=== PATIENT | male | born 1945 | race Caucasian/White ===

== ENCOUNTER → 2016-11-23 | Outpatient (CLI) | payer MEDICARE ==
[~2016-11-23] MED LIST: 1-ME1LIQ PO; ASPI81 PO; GLUCTAB OR; GLYB1TAB50 PO; LANTINJ SC; LOPI600T PO; MEDR4PAK3 PO; WARF7.5 PO
[2016-11-23 13:21] LABS: HEMATOCRIT 36.4 % (39.0-51.0); MEAN CELL VOLUME 87.1 FL (80.0-100.0); MEAN CORPUSCULAR HEMOGLOBIN 30.3 PG (27.0-34.0); MEAN CORPUSCULAR HGB CONC 34.8 % (32.0-36.0); PLATELET COUNT 317 TH/MM3 (150-450); RED BLOOD COUNT 4.18 MIL/MM3 (4.50-5.90); RED CELL DISTRIBUTION WIDTH 14.3 % (11.6-17.2); REVIEW FLAG FINAL; WHITE BLOOD COUNT 9.9 TH/MM3 (4.0-11.0)
== END ==
LOC: CLAB 12:50
PROVIDERS: ATTEND Family Medicine
DX: M25.532 Pain in left wrist (principal)
CPT/HCPCS: 36415; 84550; 85027

== ENCOUNTER → 2016-12-11 | Outpatient (CLI) | payer MEDICARE ==
[2016-12-11 11:21] LABS: INTERNATIONAL NORMALIZED RATIO 2.3 RATIO; PROTHROMBIN TIME - PATIENT 26.4 SEC (9.8-11.6)
== END ==
LOC: CLAB 10:42
PROVIDERS: ATTEND Internal Medicine Cardiovascular Disease
DX: I48.0 Paroxysmal atrial fibrillation (principal)
CPT/HCPCS: 36415; 85610

== ENCOUNTER → 2016-12-27 | Outpatient (CLI) | payer MEDICARE ==
[2016-12-27 09:59] LABS: INTERNATIONAL NORMALIZED RATIO 2.5 RATIO; PROTHROMBIN TIME - PATIENT 28.2 SEC (9.8-11.6)
[2016-12-27 10:12] LABS: HEMATOCRIT 35.1 % (39.0-51.0); MEAN CELL VOLUME 86.8 FL (80.0-100.0); MEAN CORPUSCULAR HEMOGLOBIN 30.1 PG (27.0-34.0); MEAN CORPUSCULAR HGB CONC 34.6 % (32.0-36.0); PLATELET COUNT 325 TH/MM3 (150-450); RED BLOOD COUNT 4.04 MIL/MM3 (4.50-5.90); RED CELL DISTRIBUTION WIDTH 14.1 % (11.6-17.2); REVIEW FLAG FINAL; WHITE BLOOD COUNT 6.3 TH/MM3 (4.0-11.0)
[2016-12-27 10:37] LABS: ALKALINE PHOSPHATASE 64 U/L (45-117); ALT (GPT) 22 U/L (12-78); ANION GAP 9 MEQ/L (5-15); AST (GOT) 13 U/L (15-37); BICARBONATE 23.7 MEQ/L (21.0-32.0); BLOOD UREA NITROGEN 42 MG/DL (7-18); CHLORIDE 102 MEQ/L (98-107); GLOMERULAR FILTRATION RATE 35 ML/MIN (>89); GLUCOSE,FASTING 164 MG/DL (74-99); HDL CHOLESTEROL 28.3 MG/DL (40.0-60.0); LDL CHOLESTEROL 87 MG/DL (0-99); POTASSIUM 4.2 MEQ/L (3.5-5.1); SODIUM (NA) 135 MEQ/L (136-145); TOTAL BILIRUBIN ADULT 0.5 MG/DL (0.2-1.0)
[2016-12-27 20:08] LABS: HEMOGLOBIN A1a 0.9 %; HEMOGLOBIN A1b 2.3 %; HEMOGLOBIN Ao 80.1 %; HEMOGLOBIN LA1C 2.8 %; HEMOGLOBIN P3 6.7 %
== END ==
LOC: CLAB 09:27
PROVIDERS: ATTEND Internal Medicine Endocrinology, Diabetes & Metabolism
DX: E78.4 Other hyperlipidemia (principal); R80.9 Proteinuria, unspecified; I13.10 Hypertensive heart and chronic kidney disease without heart failure, with stage 1 through stage 4 chronic kidney disease, or unspecified chronic kidney disease; N18.3 Chronic kidney disease, stage 3 (moderate); E11.22 Type 2 diabetes mellitus with diabetic chronic kidney disease; E11.21 Type 2 diabetes mellitus with diabetic nephropathy; I48.0 Paroxysmal atrial fibrillation; I25.10 Atherosclerotic heart disease of native coronary artery without angina pectoris; Z95.5 Presence of coronary angioplasty implant and graft
CPT/HCPCS: 36415; 80053; 80061; 83036; 84443; 85027; 85610

== ENCOUNTER → 2017-01-29 | Outpatient (CLI) | payer MEDICARE ==
[2017-01-29 11:15] LABS: INTERNATIONAL NORMALIZED RATIO 2.6 RATIO
== END ==
LOC: CLAB 10:37
PROVIDERS: ATTEND Internal Medicine Cardiovascular Disease
DX: I48.0 Paroxysmal atrial fibrillation (principal)
CPT/HCPCS: 36415; 85610

== ENCOUNTER → 2017-02-26 | Outpatient (CLI) | payer MEDICARE ==
[2017-02-26 10:44] LABS: BLOOD, URINE SMALL (NEG); COMMENT (UR) CULT NOT INDICATED; CULTURE IF INDICATED CULT NOT INDICATED; GLUCOSE,URINE NEG (NEG); HYALINE CAST, URINE 1 /lpf (RARE); KETONE, URINE NEG (NEG); MUCUS URINE FEW /lpf (OCC); NITRITE,URINE NEG (NEG); PH, URINE 5.5 (5.0-8.5); URINE COLOR LIGHT-YELLOW (YELLW/STRAW)
[2017-02-26 10:47] LABS: INTERNATIONAL NORMALIZED RATIO 3.1 RATIO; PROTHROMBIN TIME - PATIENT 35.5 SEC (9.8-11.6)
[2017-02-26 10:53] LABS: HEMATOCRIT 37.1 % (39.0-51.0); MEAN CELL VOLUME 87.2 FL (80.0-100.0); MEAN CORPUSCULAR HEMOGLOBIN 29.2 PG (27.0-34.0); MEAN CORPUSCULAR HGB CONC 33.5 % (32.0-36.0); PLATELET COUNT 326 TH/MM3 (150-450); RED BLOOD COUNT 4.25 MIL/MM3 (4.50-5.90); RED CELL DISTRIBUTION WIDTH 14.6 % (11.6-17.2); REVIEW FLAG FINAL; WHITE BLOOD COUNT 5.6 TH/MM3 (4.0-11.0)
[2017-02-26 11:01] LABS: BICARBONATE 26.8 MEQ/L (21.0-32.0); POTASSIUM 4.4 MEQ/L (3.5-5.1)
== END ==
LOC: CLAB 10:04
PROVIDERS: ATTEND Internal Medicine Cardiovascular Disease
DX: N18.3 Chronic kidney disease, stage 3 (moderate) (principal); E55.9 Vitamin D deficiency, unspecified; I48.0 Paroxysmal atrial fibrillation
CPT/HCPCS: 36415; 80069; 81001; 82306; 82570; 83970; 84156; 85027; 85610

== ENCOUNTER → 2017-03-26 | Outpatient (CLI) | payer MEDICARE ==
[2017-03-26 08:32] LABS: INTERNATIONAL NORMALIZED RATIO 2.5 RATIO; PROTHROMBIN TIME - PATIENT 28.3 SEC (9.8-11.6)
== END ==
LOC: CLAB 07:42
PROVIDERS: ATTEND Internal Medicine Cardiovascular Disease
DX: I48.0 Paroxysmal atrial fibrillation (principal)
CPT/HCPCS: 36415; 85610

== ENCOUNTER → 2017-03-30 | Outpatient (CLI) | payer MEDICARE ==
[2017-03-30 12:37] LABS: AUTOMATED NEUTROPHIL # 3.6 TH/MM3 (1.8-7.7); BASOPHIL # 0.1 TH/MM3 (0-0.2); BASOPHIL % 0.9 % (0.0-2.0); EOSINOPHIL # 0.2 TH/MM3 (0-0.4); HEMATOCRIT 37.3 % (39.0-51.0); HEMO FLAGS DIFF FINAL; LYMPH % 26.6 % (9.0-44.0); LYMPHOCYTE # 1.6 TH/MM3 (1.0-4.8); MEAN CELL VOLUME 87.7 FL (80.0-100.0); MEAN CORPUSCULAR HEMOGLOBIN 29.5 PG (27.0-34.0); MEAN CORPUSCULAR HGB CONC 33.6 % (32.0-36.0); MONO % 10.7 % (0.0-8.0); NEUT % 58.8 % (16.0-70.0); PLATELET COUNT 286 TH/MM3 (150-450); RED BLOOD COUNT 4.26 MIL/MM3 (4.50-5.90); RED CELL DISTRIBUTION WIDTH 15.2 % (11.6-17.2); WHITE BLOOD COUNT 6.1 TH/MM3 (4.0-11.0)
== END ==
LOC: CLAB 12:22
PROVIDERS: ATTEND Family Medicine
DX: R21 Rash and other nonspecific skin eruption (principal)
CPT/HCPCS: 36415; 85025

== ENCOUNTER → 2017-04-27 | Outpatient (CLI) | payer MEDICARE ==
[2017-04-27 10:16] LABS: HEMATOCRIT 36.9 % (39.0-51.0); MEAN CELL VOLUME 87.1 FL (80.0-100.0); MEAN CORPUSCULAR HEMOGLOBIN 30.2 PG (27.0-34.0); MEAN CORPUSCULAR HGB CONC 34.7 % (32.0-36.0); PLATELET COUNT 275 TH/MM3 (150-450); RED BLOOD COUNT 4.24 MIL/MM3 (4.50-5.90); RED CELL DISTRIBUTION WIDTH 15.4 % (11.6-17.2); REVIEW FLAG FINAL
[2017-04-27 10:23] LABS: INTERNATIONAL NORMALIZED RATIO 2.5 RATIO; PROTHROMBIN TIME - PATIENT 28.2 SEC (9.8-11.6)
[2017-04-27 10:38] LABS: ANION GAP 7 MEQ/L (5-15); BICARBONATE 26.8 MEQ/L (21.0-32.0); BLOOD UREA NITROGEN 39 MG/DL (7-18); CHLORIDE 103 MEQ/L (98-107); GLOMERULAR FILTRATION RATE 35 ML/MIN (>89); GLUCOSE,FASTING 141 MG/DL (74-99); POTASSIUM 4.3 MEQ/L (3.5-5.1); SODIUM (NA) 137 MEQ/L (136-145)
[2017-04-27 10:49] LABS: ALKALINE PHOSPHATASE 62 U/L (45-117); ALT (GPT) 30 U/L (12-78); AST (GOT) 20 U/L (15-37); HDL CHOLESTEROL 25.9 MG/DL (40.0-60.0); LDL CHOLESTEROL 124 MG/DL (0-99); TOTAL BILIRUBIN ADULT 0.5 MG/DL (0.2-1.0)
[2017-04-27 15:35] LABS: HEMOGLOBIN A1b 2.1 %; HEMOGLOBIN Ao 81.9 %; HEMOGLOBIN LA1C 2.5 %; HEMOGLOBIN P3 4.8 %
== END ==
LOC: CLAB 09:50
PROVIDERS: ATTEND Internal Medicine Endocrinology, Diabetes & Metabolism
DX: I48.0 Paroxysmal atrial fibrillation (principal); I25.10 Atherosclerotic heart disease of native coronary artery without angina pectoris; Z95.5 Presence of coronary angioplasty implant and graft; I12.9 Hypertensive chronic kidney disease with stage 1 through stage 4 chronic kidney disease, or unspecified chronic kidney disease; N18.3 Chronic kidney disease, stage 3 (moderate); E11.22 Type 2 diabetes mellitus with diabetic chronic kidney disease; E11.21 Type 2 diabetes mellitus with diabetic nephropathy; E78.4 Other hyperlipidemia; Z68.33 Body mass index [BMI] 33.0-33.9, adult; E78.5 Hyperlipidemia, unspecified
CPT/HCPCS: 36415; 80053; 80061; 83036; 84443; 85027; 85610

== ENCOUNTER → 2017-05-18 | Outpatient (CLI) | payer MEDICARE | LOC: CLAB 09:27 | PROVIDERS: ATTEND Family Medicine | DX: N40.1 Benign prostatic hyperplasia with lower urinary tract symptoms (principal) | CPT/HCPCS: 36415; 84153 ==

== ENCOUNTER → 2017-06-04 | Outpatient (CLI) | payer MEDICARE ==
[2017-06-04 13:21] LABS: INTERNATIONAL NORMALIZED RATIO 2.5 RATIO; PROTHROMBIN TIME - PATIENT 29.3 SEC (9.8-11.6)
== END ==
LOC: CLAB 12:51
PROVIDERS: ATTEND Internal Medicine Cardiovascular Disease
DX: I48.0 Paroxysmal atrial fibrillation (principal)
CPT/HCPCS: 36415; 85610

== ENCOUNTER → 2017-07-09 | Outpatient (CLI) | payer MEDICARE ==
[~2017-07-09] MED LIST changes: +ALLO100T PO; +ASPI81CH37 CHEW; +AUGM875T3 PO; +FISH OIL PO; +GEMF600T PO; +GLIM4TAB PO; +ISOS30TA3 PO; +LANTINJ SQ; +LATA0.002 EACH EYE; +LISI20TA PO; +METO50TA11 PO; +MIRA3350 PO; +NITR0.4S SL; +NORC5TAB PO; +NOVORP2 SQ; +THERTAB PO; +WARF-23 PO; +[UNRECOGNIZED DRUG - OTHER] PO
[2017-07-09 11:45] LABS: INTERNATIONAL NORMALIZED RATIO 2.4 RATIO
== END ==
LOC: CLAB 11:17
PROVIDERS: ATTEND Internal Medicine Cardiovascular Disease
DX: I48.0 Paroxysmal atrial fibrillation (principal)
CPT/HCPCS: 36415; 85610

== ENCOUNTER → 2017-08-13 | Outpatient (CLI) | payer MEDICARE ==
[2017-08-13 12:40] LABS: INTERNATIONAL NORMALIZED RATIO 2.4 RATIO; PROTHROMBIN TIME - PATIENT 28.1 SEC (9.8-11.6)
== END ==
LOC: CLAB 11:30
DX: M10.071 Idiopathic gout, right ankle and foot (principal); M25.571 Pain in right ankle and joints of right foot; R70.0 Elevated erythrocyte sedimentation rate; I48.0 Paroxysmal atrial fibrillation
CPT/HCPCS: 36415; 84550; 85610

== ENCOUNTER 2017-08-21 05:08 | Emergency (ER) | payer MEDICARE ==
[~2017-08-21] VITALS: Ht 171.4 cm; Wt 100.2 kg
[~2017-08-21 05:08] MED LIST changes: -ALLO100T PO; -ASPI81CH37 CHEW; -AUGM875T3 PO; -FISH OIL PO; -GEMF600T PO; -GLIM4TAB PO; -ISOS30TA3 PO; -LANTINJ SQ; -LATA0.002 EACH EYE; -LISI20TA PO; -METO50TA11 PO; -MIRA3350 PO; -NITR0.4S SL; -NORC5TAB PO; -NOVORP2 SQ; -THERTAB PO; -WARF-23 PO; -[UNRECOGNIZED DRUG - OTHER] PO
[2017-08-21 05:23] VITALS: BP 170/69; PULSE 71; RESP 18; TEMP 99.4; O2SAT 97
[2017-08-21] MEDS ORDERED: NITR0.4S SL (05:51)
[2017-08-21] MEDS ORDERED: GEMF600T PO (05:51)
[2017-08-21] MEDS ORDERED: FISH OIL PO (05:51)
[2017-08-21] MEDS ORDERED: LISI20TA PO (05:51)
[2017-08-21] MEDS ORDERED: THERTAB PO ×2 (05:51)
[2017-08-21] MEDS ORDERED: LANTINJ SQ (05:51)
[2017-08-21] MEDS ORDERED: ISOS30TA3 PO (05:51)
[2017-08-21] MEDS ORDERED: GLIM4TAB PO (05:51)
[2017-08-21] MEDS ORDERED: ASPI81CH37 CHEW (05:51)
[2017-08-21] MEDS ORDERED: ALLO100T PO (05:51)
[2017-08-21] MEDS ORDERED: NOVORP2 SQ (05:51)
[2017-08-21] MEDS ORDERED: WARF-23 PO (05:51)
[2017-08-21] MEDS ORDERED: MIRA3350 PO (05:51)
[2017-08-21] MEDS ORDERED: LATA0.002 EACH EYE (05:51)
[2017-08-21] MEDS ORDERED: METO50TA11 PO (05:51)
[2017-08-21] MEDS ORDERED: [UNRECOGNIZED DRUG - OTHER] PO (05:51)
[2017-08-21 06:11] LABS: AUTOMATED NEUTROPHIL # 6.6 TH/MM3 (1.8-7.7); BASOPHIL # 0.3 TH/MM3 (0-0.2); BASOPHIL % 3.2 % (0.0-2.0); EOSINOPHIL # 0.3 TH/MM3 (0-0.4); EOSINOPHIL % 2.7 % (0.0-4.0); HEMATOCRIT 34.7 % (39.0-51.0); HEMO FLAGS DIFF FINAL; LYMPH % 16.6 % (9.0-44.0); LYMPHOCYTE # 1.6 TH/MM3 (1.0-4.8); MEAN CELL VOLUME 90.6 FL (80.0-100.0); MEAN CORPUSCULAR HGB CONC 33.1 % (32.0-36.0); NEUT % 67.5 % (16.0-70.0); PLATELET COUNT 292 TH/MM3 (150-450); RED BLOOD COUNT 3.83 MIL/MM3 (4.50-5.90); RED CELL DISTRIBUTION WIDTH 14.6 % (11.6-17.2); WHITE BLOOD COUNT 9.8 TH/MM3 (4.0-11.0)
[2017-08-21 06:20] LABS: POTASSIUM 4.2 MEQ/L (3.5-5.1)
[2017-08-21 06:22] LABS: BICARBONATE 24.3 MEQ/L (21.0-32.0); PROTHROMBIN TIME - PATIENT 46.4 SEC (9.8-11.6)
--- NOTE | 2017-08-21 06:53 | RADRPT ---
EXAM DATE/TIME: 08/21/2017 06:13 [facility] COMPARISON: No previous studies available for comparison. INDICATIONS : Trauma, fall. MEDICAL HISTORY : None. SURGICAL HISTORY : None. ENCOUNTER: Initial ACUITY: 1 day PAIN SCORE: 5/10 LOCATION: Left hip FINDINGS: Examination of the left hip was performed with AP Pelvis. The primary and secondary trabecular patte rn of the femoral neck is intact. The hip joint is of normal width without significant sclerosis or bony hypertrophy. The acetabulum is grossly intact. CONCLUSION: Intact pelvis and left hip. Pascual Key MD on August 21, 2017 at 6:51 Board Certified Radiologist. This report was verified electronically.
--- NOTE | 2017-08-21 06:54 | RADRPT ---
EXAM DATE/TIME: 08/21/2017 06:25 [facility] COMPARISON: No previous studies available for comparison. INDICATIONS : Trauma, fall. MEDICAL HISTORY : None. SURGICAL HISTORY : None. ENCOUNTER: Initial ACUITY: 1 day PAIN SCORE: 5/10 LOCATION: lumbar spine FINDINGS: No fracture or subluxation seen in the lumbar spine paravertebral bodies have normal height. Mild to moderate disc space narrowing with anterolateral predominant osseous ridging seen at essentia lly all levels. 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 CONCLUSION: Multilevel degenerative changes of the lumbar spine. No fracture or subluxation demonstrated. Pascual Key MD on August 21, 2017 at 6:52 Board Certified Radiologist. This report was verified electronically.
--- NOTE | 2017-08-21 06:55 | PD ---
HPI Chief Complaint: Fall Time Seen by Provider: 05:52 Travel History International Travel<30 days: No Contact w/Intl Traveler<30days: No Traveled to known affect area: No History of Present Illness HPI 72-year-old male presents to the emergency department by private transportation for complaint of left hip and hamstring pain and noted bruise to his left buttock. Patient states that yesterday around 5 PM he was fixing spline on his screen and closure and as he stepped back off of a two-step kitchen latter he missed the lower rung and jumped backwards trying to avoid falling and subsequently fell landing on his buttock and then onto his back. Patient states he did not hit his head did not have loss of consciousness did not injure his neck did not injure his upper back denies any upper extremity or lower extremity numbness tingling or weakness. Patient does note pain and dullness to the left posterior upper leg in the hamstring distribution and then noted some bruising to his right buttock. Patient has had no bladder or bowel dysfunction no saddle anesthesia. Patient denies prior history of back injury or back pain. Patient denies any low back pain or pelvis pain at this time. Patient states that because of poor renal function he is not able to take ibuprofen and has taken 2 doses of acetaminophen without relief. Due to ongoing discomfort decided to come to the emergency room for evaluation. Patient does have history of atrial fibrillation and does take Coumadin. Patient also has history of CAD and diabetes. Patient reports blood sugars have been well-controlled. PFSH Past Medical History Narrative Medical Coumadin therapy, atrial fibrillation, dyslipidemia, CAD, diabetes, hypertension , gouty arthritis, kidney stones, cardiac catheterization with stents 4, cholecystectomy lithotripsy, no tobacco use; nursing notes reviewed Hx Anticoagulant Therapy: Yes (ON WARFARIN) Arthritis: No Asthma: No Atrial Fibrillation: Yes Autoimmune Disease: No Blood Disorders: No Heart Rhythm Problems: No Cancer: No Cardiac Catheterization: Yes Cardiovascular Problems: Yes (A-FIB, STENTS X4) High Cholesterol: Yes Chemotherapy: No Chest Pain: Yes Congestive Heart Failure: No COPD: No Cerebrovascular Accident: No Diabetes: Yes (ON INSULIN) Patient Takes Glucophage: No Diminished Hearing: No Endocrine: No Gastrointestinal Disorders: Yes GERD: No Glaucoma: No Gout: Yes Headaches: Yes Hepatitis: No Hiatal Hernia: No Hypertension: Yes Immune Disorder: No Kidney Stones: Yes Musculoskeletal: No Neurologic: No Psychiatric: No Reproductive: No Respiratory: No Migraines: No Myocardial Infarction: No Radiation Therapy: No Renal Failure: No Seizures: No Sickle Cell Disease: No Sleep Apnea: Yes Thyroid Disease: No Ulcer: No Influenza Vaccination: Yes Past Surgical History Abdominal Surgery: Yes (CHOLESTECTOMY) AICD: No Appendectomy: No Arteriovenous Shunt: No Cholecystectomy: Yes Coronary Artery Bypass Graft: No Coronary Stent: Yes (2006) Insulin Pump: No Joint Replacement: No Pacemaker: No Other Surgery: Yes (EAR TUBES, LITHOTRIPSY, SQUAMOUS CELLS REMOVED FROM SKIN) Social History Alcohol Use: No Tobacco Use: No Substance Use: No Allergies-Medications (Allergen,Severity, Reaction): Coded Allergies: diatrizoate meglumine (Unverified Allergy, Severe, 08/21/17) gadobenic acid (Unverified Allergy, Severe, 08/21/17) gadodiamide (Unverified Allergy, Severe, 08/21/17) gadoteridol (Unverified Allergy, Severe, 08/21/17) iodixanol (Unverified Allergy, Severe, 08/21/17) iohexol (Unverified Allergy, Severe, 08/21/17) Reported Meds & Prescriptions Reported Meds & Active Scripts Active Reported Aspirin Low Dose (Aspirin) 81 Mg Chew 81 Mg CHEW DAILY Latanoprost Opth Drops (Latanoprost) 0.005% Drops 1 Drop EACH EYE HS Refrigerate until opened. Allopurinol 100 Mg Tab 100 Mg PO DAILY Lantus Solostar Pen Inj (Insulin Glargine) 300 Unit/3 Ml Pen 60 Units SQ HS Novolin R Inj (Insulin Human Regular) 1,000 Unit/10 Ml Vial 26 Units SQ BID [Fiberwell Gummies] 2 Gum PO DAILY Miralax Powder (Polyethylene Glycol 3350 Powder) 17 Gm Powd 17 Gm PO DAILY Mix and dissolve one measuring cap-ful (17 grams) in water or juice. [Fish Oil ] 1,400 Mg PO DAILY Nitrostat SL (Nitroglycerin) 0.4 Mg Subl 0.4 Mg SL DIRECTED PRN 1 tablet under the tongue as needed for chest pain. Repeat every 5 minutes for a total of 3 DOSES or call 911 if NO relief. Theralith Xr (Nutritional Supplements) 3.75 Mg-45 Mg-45 Mg-49.5 Mg Tab 1 Tab PO HS Theralith Xr (Nutritional Supplements) 3.75 Mg-45 Mg-45 Mg-49.5 Mg Tab 2 Tab PO AM Gemfibrozil 600 Mg Tab 600 Mg PO BIDAC Take 30 minutes prior to breakfast and dinner. Glimepiride 4 Mg Tab 8 Mg PO DAILY Take with breakfast or first main meal Warfarin 5 Mg Tab 5 Mg PO DAILY Lisinopril-Hctz 20-12.5 Mg Tab 1 Tab PO BID Metoprolol Succinate ER 24 HR (Metoprolol Succinate) 50 Mg Tab 50 Mg PO DAILY Isosorbide Mononitrate ER (Isosorbide Mononitrate) 30 Mg Rosanna 30 Mg PO DAILY Review of Systems Except as stated in HPI: all other systems reviewed are Neg General / Constitutional: No: Fever, Chills HENT: No: Headaches, Congestion, Neck Stiffness, Neck Pain Cardiovascular: No: Chest Pain or Discomfort Respiratory: No: Shortness of Breath Gastrointestinal: No: Nausea, Vomiting, Abdominal Pain Genitourinary: No: Dysuria, Hematuria, Pelvic Pain, Flank Pain Musculoskeletal: Positive: Myalgias, Arthralgias, Pain (left upper legright buttock), No: Limited ROM Physical Exam Narrative GENERAL: Well developed well-nourished male in no acute distress no respiratory distress SKIN: Warm and dry. HEAD: Normocephalic. EYES: No scleral icterus. No injection or drainage. NECK: Supple, trachea midline. No JVD or lymphadenopathy. CARDIOVASCULAR: Regular rate and rhythm without murmurs, gallops, or rubs. RESPIRATORY: Breath sounds equal bilaterally. No accessory muscle use. GASTROINTESTINAL: Abdomen soft, non-tender, nondistended. MUSCULOSKELETAL: No cyanosis, or edema. BACK: Nontender without obvious deformity. Small area of ecchymosis to the right flank. Negative straight leg raising bilaterally. Motor strength 5 over 5 bilateral lower extremities. Sensory exam intact. DTRs 2+ and equal bilaterally. No CVA tenderness. Data Data Last Documented VS Vital Signs Date Time Temp Pulse Resp B/P (MAP) Pulse Ox O2 Delivery O2 Flow Rate FiO2 08/21/17 07:02 66 18 162/69 (100) 99 Room Air 08/21/17 05:23 99.4 Orders Orders Complete Blood Count With Diff (08/21/17 05:52) Prothrombin Time / Inr (Pt) (08/21/17 05:52) Basic Metabolic Panel (Bmp) (08/21/17 05:52) Spine, Lumbar - Ltd (Ap & Lat) (08/21/17 ) Hip, Uni(Ap&Lat) W Ap Pelvis (08/21/17 ) Urinalysis - C+S If Indicated (08/21/17 06:49) Ct Abd/Pel W/O Iv Contrast (08/21/17 ) Labs Laboratory Tests Test 08/21/17 06:00 08/21/17 06:55 White Blood Count 9.8 TH/MM3 Red Blood Count 3.83 MIL/MM3 Hemoglobin 11.5 GM/DL Hematocrit 34.7 % Mean Corpuscular Volume 90.6 FL Mean Corpuscular Hemoglobin 30.0 PG Mean Corpuscular Hemoglobin Concent 33.1 % Red Cell Distribution Width 14.6 % Platelet Count 292 TH/MM3 Mean Platelet Volume 7.5 FL Neutrophils (%) (Auto) 67.5 % Lymphocytes (%) (Auto) 16.6 % Monocytes (%) (Auto) 10.0 % Eosinophils (%) (Auto) 2.7 % Basophils (%) (Auto) 3.2 % Neutrophils # (Auto) 6.6 TH/MM3 Lymphocytes # (Auto) 1.6 TH/MM3 Monocytes # (Auto) 1.0 TH/MM3 Eosinophils # (Auto) 0.3 TH/MM3 Basophils # (Auto) 0.3 TH/MM3 CBC Comment DIFF FINAL Differential Comment Prothrombin Time 46.4 SEC Prothromb Time International Ratio 4.0 RATIO Blood Urea Nitrogen 37 MG/DL Creatinine 2.00 MG/DL Random Glucose 58 MG/DL Calcium Level 9.0 MG/DL Sodium Level 136 MEQ/L Potassium Level 4.2 MEQ/L Chloride Level 103 MEQ/L Carbon Dioxide Level 24.3 MEQ/L Anion Gap 9 MEQ/L Estimat Glomerular Filtration Rate 33 ML/MIN Urine Collection Type CLEAN CATCH Urine Color YELLOW Urine Turbidity CLEAR Urine pH 5.5 Urine Specific [place] 1.012 Urine Protein 30 mg/dL Urine Glucose (UA) NEG mg/dL Urine Ketones NEG mg/dL Urine Occult Blood MOD Urine Nitrite NEG Urine Bilirubin NEG Urine Leukocyte Esterase NEG Urine RBC 0-3 /hpf Urine Squamous Epithelial Cells 0-5 /hpf Microscopic Urinalysis Comment CULT NOT INDICATED MDM Medical Decision Making Medical Screen Exam Complete: Yes Emergency Medical Condition: Yes Medical Record Reviewed: Yes Interpretation(s) CBC & BMP Diagram 08/21/17 06:00 Calcium Level 9.0 Vital Signs Date Time Temp Pulse Resp B/P (MAP) Pulse Ox O2 Delivery O2 Flow Rate FiO2 08/21/17 07:02 66 18 162/69 (100) 99 Room Air 08/21/17 05:35 71 18 08/21/17 05:23 99.4 71 18 170/69 (102) 97 INR: 4.0, elevated ua: positive for blood no RBC's Differential Diagnosis Sprain strain HNP compression fracture sciatica unlikely cord compression Coumadin coagulopathy anemia flank hematoma Narrative Course labs ordered INR found to be 4.0 mildly prolonged urinalysis shows occult blood but no red blood cells Imaging study shows no acute bony abnormalities CT noncontrast ordered to evaluate hematoma Care signed over to oncoming physician at 720 to follow-up CT results and patient disposition: Plan will be for patient be discharged with prescription for pain medication and follow-up with his primary care provider. 720 care signed over to Yara Silverio MD Aug 21, 2017 06:55
[2017-08-21 07:02] VITALS: BP 162/69; PULSE 66; RESP 18; O2SAT 99
[2017-08-21 07:03] LABS: BLOOD, URINE MOD (NEG); GLUCOSE,URINE NEG (NEG); KETONE, URINE NEG (NEG); NITRITE,URINE NEG (NEG); PH, URINE 5.5 (5.0-8.5)
[2017-08-21 07:07] LABS: METHOD OF COLLECTION CLEAN CATCH; URINE COLOR YELLOW (YELLW/STRAW)
[2017-08-21 07:08] LABS: COMMENT (UR) CULT NOT INDICATED; CULTURE IF INDICATED CULT NOT INDICATED; RBC, URINE 0-3 /hpf (0-3); SQUAMOUS EPITHELIAL CELL URINE 0-5 /hpf (0-5)
--- NOTE | 2017-08-21 07:40 | RADRPT ---
EXAM DATE/TIME: 08/21/2017 07:21 [facility] COMPARISON: CT ABDOMEN & PELVIS W/O CONTRAST, September 03, 2011, 21:06. INDICATIONS : Fall. Right flank pain with small hematoma. History of bilateral renal calculi. ORAL CONTRAST: No oral contrast ingested. RADIATION DOSE: 24.19 CTDIvol (mGy) MEDICAL HISTORY : Cardiovascular disease. Hypertension. Diabetes. Anticoagulant therapy. SURGICAL HISTORY : Cholecystectomy. Coronary artery stent.Lithotripsy. ENCOUNTER: Initial ACUITY: 1 day PAIN SCALE: 4/10 LOCATION: Right flank TECHNIQUE: Volumetric scanning of the abdomen and pelvis was performed. Using automated exposure control and ad justment of the mA and/or kV according to patient size, radiation dose was kept as low as reasonably achievable to obtain optimal diagnostic quality images. DICOM format image data is available electro nically for review and comparison. FINDINGS: LOWER LUNGS: The visualized lower lungs are clear. LIVER: Homogeneous density without lesion. There is no dilation of the biliary tree. Status post cholecyste ctomy. SPLEEN: Normal size without lesion. PANCREAS: Stable and unremarkable with calcification in the tail region. KIDNEYS: Normal in size and shape. There is no mass or hydronephrosis. There are multiple nonobstructing left renal calculi and 28 trainee less than 1 mm right renal calculi. A ADRENAL GLANDS: Within normal limits. VASCULAR: There is no aortic aneurysm. BOWEL/MESENTERY: There are multiple diverticuli greatest in the sigmoid colon. There is mild inflammatory change invol ving the distal descending colon. There is mild wispy soft tissue density in the mesentery with adjac ent diverticuli. There is no free air or fluid. ABDOMINAL WALL: Within normal limits. RETROPERITONEUM: There is no lymphadenopathy. BLADDER: No wall thickening or mass. REPRODUCTIVE: Within normal limits. INGUINAL: There is no lymphadenopathy or hernia. MUSCULOSKELETAL: Within normal limits for patient age. CONCLUSION: 1. Mild diverticulitis involving the distal descending colon. 2. Nonobstructing bilateral renal calculi. 3. Status post cholecystectomy. Aryan Little MD on August 21, 2017 at 7:33 Board Certified Radiologist. This report was verified electronically.
--- NOTE | 2017-08-21 07:57 | PD ---
Physical Exam Date Seen by Provider: Aug 21, 2017 Time Seen by Provider: 07:52 Narrative The patient is a 72-year-old male who was initially evaluated by the previous physician, Dr. Rivera. Please refer to the initial history, physical, diagnostic evaluation, and treatment modality plan. The patient was signed out at [address] of the abdomen and pelvis pending. Data Data Last Documented VS Vital Signs Date Time Temp Pulse Resp B/P (MAP) Pulse Ox O2 Delivery O2 Flow Rate FiO2 08/21/17 07:02 66 18 162/69 (100) 99 Room Air 08/21/17 05:23 99.4 Orders Orders Complete Blood Count With Diff (08/21/17 05:52) Prothrombin Time / Inr (Pt) (08/21/17 05:52) Basic Metabolic Panel (Bmp) (08/21/17 05:52) Spine, Lumbar - Ltd (Ap & Lat) (08/21/17 ) Hip, Uni(Ap&Lat) W Ap Pelvis (08/21/17 ) Urinalysis - C+S If Indicated (08/21/17 06:49) Ct Abd/Pel W/O Iv Contrast (08/21/17 ) Labs Laboratory Tests Test 08/21/17 06:00 08/21/17 06:55 White Blood Count 9.8 TH/MM3 Red Blood Count 3.83 MIL/MM3 Hemoglobin 11.5 GM/DL Hematocrit 34.7 % Mean Corpuscular Volume 90.6 FL Mean Corpuscular Hemoglobin 30.0 PG Mean Corpuscular Hemoglobin Concent 33.1 % Red Cell Distribution Width 14.6 % Platelet Count 292 TH/MM3 Mean Platelet Volume 7.5 FL Neutrophils (%) (Auto) 67.5 % Lymphocytes (%) (Auto) 16.6 % Monocytes (%) (Auto) 10.0 % Eosinophils (%) (Auto) 2.7 % Basophils (%) (Auto) 3.2 % Neutrophils # (Auto) 6.6 TH/MM3 Lymphocytes # (Auto) 1.6 TH/MM3 Monocytes # (Auto) 1.0 TH/MM3 Eosinophils # (Auto) 0.3 TH/MM3 Basophils # (Auto) 0.3 TH/MM3 CBC Comment DIFF FINAL Differential Comment Prothrombin Time 46.4 SEC Prothromb Time International Ratio 4.0 RATIO Blood Urea Nitrogen 37 MG/DL Creatinine 2.00 MG/DL Random Glucose 58 MG/DL Calcium Level 9.0 MG/DL Sodium Level 136 MEQ/L Potassium Level 4.2 MEQ/L Chloride Level 103 MEQ/L Carbon Dioxide Level 24.3 MEQ/L Anion Gap 9 MEQ/L Estimat Glomerular Filtration Rate 33 ML/MIN Urine Collection Type CLEAN CATCH Urine Color YELLOW Urine Turbidity CLEAR Urine pH 5.5 Urine Specific [place] 1.012 Urine Protein 30 mg/dL Urine Glucose (UA) NEG mg/dL Urine Ketones NEG mg/dL Urine Occult Blood MOD Urine Nitrite NEG Urine Bilirubin NEG Urine Leukocyte Esterase NEG Urine RBC 0-3 /hpf Urine Squamous Epithelial Cells 0-5 /hpf Microscopic Urinalysis Comment CULT NOT INDICATED MDM Medical Record Reviewed: Yes Supervised Visit with MARTIN: No Interpretation(s) Laboratory Tests Test 08/21/17 06:00 08/21/17 06:55 White Blood Count 9.8 TH/MM3 Red Blood Count 3.83 MIL/MM3 Hemoglobin 11.5 GM/DL Hematocrit 34.7 % Mean Corpuscular Volume 90.6 FL Mean Corpuscular Hemoglobin 30.0 PG Mean Corpuscular Hemoglobin Concent 33.1 % Red Cell Distribution Width 14.6 % Platelet Count 292 TH/MM3 Mean Platelet Volume 7.5 FL Neutrophils (%) (Auto) 67.5 % Lymphocytes (%) (Auto) 16.6 % Monocytes (%) (Auto) 10.0 % Eosinophils (%) (Auto) 2.7 % Basophils (%) (Auto) 3.2 % Neutrophils # (Auto) 6.6 TH/MM3 Lymphocytes # (Auto) 1.6 TH/MM3 Monocytes # (Auto) 1.0 TH/MM3 Eosinophils # (Auto) 0.3 TH/MM3 Basophils # (Auto) 0.3 TH/MM3 CBC Comment DIFF FINAL Differential Comment Prothrombin Time 46.4 SEC Prothromb Time International Ratio 4.0 RATIO Blood Urea Nitrogen 37 MG/DL Creatinine 2.00 MG/DL Random Glucose 58 MG/DL Calcium Level 9.0 MG/DL Sodium Level 136 MEQ/L Potassium Level 4.2 MEQ/L Chloride Level 103 MEQ/L Carbon Dioxide Level 24.3 MEQ/L Anion Gap 9 MEQ/L Estimat Glomerular Filtration Rate 33 ML/MIN Urine Collection Type CLEAN CATCH Urine Color YELLOW Urine Turbidity CLEAR Urine pH 5.5 Urine Specific [place] 1.012 Urine Protein 30 mg/dL Urine Glucose (UA) NEG mg/dL Urine Ketones NEG mg/dL Urine Occult Blood MOD Urine Nitrite NEG Urine Bilirubin NEG Urine Leukocyte Esterase NEG Urine RBC 0-3 /hpf Urine Squamous Epithelial Cells 0-5 /hpf Microscopic Urinalysis Comment CULT NOT INDICATED X-ray of the left hip with AP pelvis reveals intact pelvis and left hip. X-ray lumbar spine reveals multilevel degenerative changes of the lumbar spine. No fracture or subluxation demonstrated. CT of the abdomen and pelvis reveals mild diverticulitis involving the distal descending colon. Nonobstructing bilateral renal calculi. Status post cholecystectomy. Differential Diagnosis Differential diagnosis includes multisystem trauma, hip fracture, pelvis fracture, retroperitoneal hematoma, intraperitoneal hemorrhage, contusion, hematoma. Narrative Course The patient was initially evaluated by the previous physician, Dr. Rivera. Please refer to the initial history, physical, diagnostic evaluation, and treatment modality plan. The patient was signed out at 7 AM with laboratory evaluation pending. The patient's INR was slightly elevated at 4.0. The patient's x-ray of the hip and pelvis was unremarkable, x-ray of the lumbar spine reveals degenerative changes. CT of the abdomen and pelvis reveals mild diverticulitis involving the distal descending colon, nonobstructing bilateral renal calculi, status post cholecystectomy, no other acute findings noted. The patient was reevaluated at 7:56 AM. The patient states he did have some left lower quadrant pain last Sunday which improved on Sunday, does have a history of diverticulitis. However, he has difficulty with Cipro and Flagyl. Therefore , the patient will be placed on Augmentin twice a day for one week. He is advised to ice hematomas and contusions, hold Coumadin for one day, and follow- up with his primary physician, Dr. Adeline Trammell. Diagnosis Primary Impression: Contusion, flank Qualified Codes: S30.1XXA - Contusion of abdominal wall, initial encounter Additional Impressions: Hematoma Diverticulitis Qualified Codes: K57.32 - Diverticulitis of large intestine without perforation or abscess without bleeding Patient Instructions: General Instructions Additional Instruction: Hold warfarin today. Augmentin as directed. Please provide the patient copy of his CT results and lab results at discharge. Follow-up with your primary physician. Return if symptoms worsen or progress. Apply ice to the contusions. Med/Other Pt SpecificInfo: Prescription(s) given Scripts Hydrocodone-Acetaminophen ([place]) 5-325 mg Tab 1 TAB PO Q6H Y for PAIN, #15 TAB 0 Refills Prov: Umer Beckham MD 08/21/17 Amoxicillin-Clavulanate (Augmentin) 875-125 Mg Tab 1 TAB PO BID for Infection for 7 Days, #14 TAB 0 Refills Prov: Umer Beckham MD 08/21/17 Disposition: 01 DISCHARGE HOME Condition: Stable Umer Beckham MD Aug 21, 2017 07:57
[2017-08-21] MEDS ORDERED: NORC5TAB PO (08:04)
[2017-08-21] MEDS ORDERED: AUGM875T3 PO (08:04)
[2017-08-21 08:05] VITALS: BP 162/66; PULSE 68; RESP 18; O2SAT 97
== END 2017-08-21 08:17 | disposition home or self-care (01) ==
LOC: PHED 05:08
DX: S30.1XXA Contusion of abdominal wall, initial encounter (principal); K57.32 Diverticulitis of large intestine without perforation or abscess without bleeding; W19.XXXA Unspecified fall, initial encounter; I10 Essential (primary) hypertension; E11.9 Type 2 diabetes mellitus without complications; E78.00 Pure hypercholesterolemia, unspecified; I25.10 Atherosclerotic heart disease of native coronary artery without angina pectoris; I48.91 Unspecified atrial fibrillation; Z79.01 Long term (current) use of anticoagulants; Z79.4 Long term (current) use of insulin; Z95.5 Presence of coronary angioplasty implant and graft
CPT/HCPCS: 72100; 73502; 74176; 80048; 81001; 85025; 85610; 99285

== ENCOUNTER → 2017-09-10 | Outpatient (CLI) | payer MEDICARE ==
[~2017-09-10] MED LIST changes: -1-ME1LIQ PO; +ALLO100T PO; -ASPI81 PO; +ASPI81CH37 CHEW; +AUGM875T3 PO; +FISH OIL PO; +GEMF600T PO; +GLIM4TAB PO; -GLUCTAB OR; -GLYB1TAB50 PO; +ISOS30TA3 PO; -LANTINJ SC; +LANTINJ SQ; +LATA0.002 EACH EYE; +LISI20TA PO; -LOPI600T PO; -MEDR4PAK3 PO; +METO50TA11 PO; +MIRA3350 PO; +NITR0.4S SL; +NORC5TAB PO; +NOVORP2 SQ; +THERTAB PO; +WARF-23 PO; -WARF7.5 PO; +[UNRECOGNIZED DRUG - OTHER] PO
[2017-09-10 09:58] LABS: INTERNATIONAL NORMALIZED RATIO 2.3 RATIO; PROTHROMBIN TIME - PATIENT 26.8 SEC (9.8-11.6)
[2017-09-10 10:05] LABS: ANION GAP 10 MEQ/L (5-15); AST (GOT) 18 U/L (15-37); BICARBONATE 22.7 MEQ/L (21.0-32.0); BLOOD UREA NITROGEN 31 MG/DL (7-18); CHLORIDE 105 MEQ/L (98-107); GLOMERULAR FILTRATION RATE 39 ML/MIN (>89); GLUCOSE,FASTING 159 MG/DL (74-99); POTASSIUM 4.4 MEQ/L (3.5-5.1); SODIUM (NA) 138 MEQ/L (136-145)
[2017-09-10 10:06] LABS: ALT (GPT) 26 U/L (12-78); HEMATOCRIT 36.4 % (39.0-51.0); MEAN CORPUSCULAR HEMOGLOBIN 30.7 PG (27.0-34.0); MEAN CORPUSCULAR HGB CONC 34.1 % (32.0-36.0); PLATELET COUNT 320 TH/MM3 (150-450); RED BLOOD COUNT 4.04 MIL/MM3 (4.50-5.90); RED CELL DISTRIBUTION WIDTH 15.2 % (11.6-17.2); REVIEW FLAG FINAL; WHITE BLOOD COUNT 6.3 TH/MM3 (4.0-11.0)
[2017-09-10 10:16] LABS: ALKALINE PHOSPHATASE 53 U/L (45-117); HDL CHOLESTEROL 22.7 MG/DL (40.0-60.0); TOTAL BILIRUBIN ADULT 0.4 MG/DL (0.2-1.0)
[2017-09-10 17:13] LABS: HEMOGLOBIN A1b 2.1 %; HEMOGLOBIN Ao 82.1 %; HEMOGLOBIN LA1C 2.7 %; HEMOGLOBIN P3 6.1 %
== END ==
LOC: CLAB 09:02
PROVIDERS: ATTEND Internal Medicine Cardiovascular Disease
DX: I48.0 Paroxysmal atrial fibrillation (principal); E78.4 Other hyperlipidemia; I25.10 Atherosclerotic heart disease of native coronary artery without angina pectoris; I12.9 Hypertensive chronic kidney disease with stage 1 through stage 4 chronic kidney disease, or unspecified chronic kidney disease; N18.3 Chronic kidney disease, stage 3 (moderate); E11.22 Type 2 diabetes mellitus with diabetic chronic kidney disease; E11.21 Type 2 diabetes mellitus with diabetic nephropathy; M10.9 Gout, unspecified; Z95.5 Presence of coronary angioplasty implant and graft; Z68.35 Body mass index [BMI] 35.0-35.9, adult
CPT/HCPCS: 36415; 80053; 80061; 83036; 84443; 84550; 85027; 85610

== ENCOUNTER → 2017-09-13 | Outpatient (CLI) | payer MEDICARE ==
[2017-09-13 12:31] LABS: BACTERIA, URINE RARE /hpf; BLOOD, URINE SMALL (NEG); COMMENT (UR) CULT NOT INDICATED; CULTURE IF INDICATED CULT NOT INDICATED; GLUCOSE,URINE 70 mg/dL (NEG); KETONE, URINE NEG (NEG); MUCUS URINE FEW /lpf (OCC); NITRITE,URINE NEG (NEG); URINE COLOR LIGHT-YELLOW (YELLW/STRAW)
[2017-09-13 12:48] LABS: BICARBONATE 23.8 MEQ/L (21.0-32.0); POTASSIUM 4.4 MEQ/L (3.5-5.1)
== END ==
LOC: CLAB 12:02
PROVIDERS: ATTEND Physician Assistant
DX: E55.9 Vitamin D deficiency, unspecified (principal); N18.3 Chronic kidney disease, stage 3 (moderate)
CPT/HCPCS: 36415; 80069; 81001; 82306; 82570; 83970; 84156

== ENCOUNTER → 2017-10-15 | Outpatient (CLI) | payer MEDICARE ==
[~2017-10-15] MED LIST changes: -ASPI81CH37 CHEW; +ASPI81CH6 CHEW; +METO1TAB9 PO; -METO50TA11 PO
[2017-10-15 11:07] LABS: INTERNATIONAL NORMALIZED RATIO 3.6 RATIO; PROTHROMBIN TIME - PATIENT 41.6 SEC (9.8-11.6)
== END ==
LOC: CLAB 10:29
PROVIDERS: ATTEND Internal Medicine Cardiovascular Disease
DX: I48.0 Paroxysmal atrial fibrillation (principal)
CPT/HCPCS: 36415; 85610

== ENCOUNTER → 2017-10-22 | Outpatient (CLI) | payer MEDICARE ==
[2017-10-22 11:16] LABS: INTERNATIONAL NORMALIZED RATIO 2.8 RATIO; PROTHROMBIN TIME - PATIENT 28.2 SEC (9.8-11.6)
== END ==
LOC: CLAB 10:32
PROVIDERS: ATTEND Internal Medicine Cardiovascular Disease
DX: I48.0 Paroxysmal atrial fibrillation (principal)
CPT/HCPCS: 36415; 85610

== ENCOUNTER → 2017-11-26 | Outpatient (CLI) | payer MEDICARE ==
[2017-11-26 10:56] LABS: INTERNATIONAL NORMALIZED RATIO 3.1 RATIO; PROTHROMBIN TIME - PATIENT 31.2 SEC (9.8-11.6)
== END ==
LOC: CLAB 10:19
PROVIDERS: ATTEND Internal Medicine Cardiovascular Disease
DX: I48.0 Paroxysmal atrial fibrillation (principal); Z95.5 Presence of coronary angioplasty implant and graft
CPT/HCPCS: 36415; 85610

== ENCOUNTER → 2017-12-05 | Outpatient (CLI) | payer MEDICARE ==
[2017-12-05 10:41] LABS: INTERNATIONAL NORMALIZED RATIO 2.6 RATIO; PROTHROMBIN TIME - PATIENT 26.4 SEC (9.8-11.6)
== END ==
LOC: CLAB 10:12
PROVIDERS: ATTEND Internal Medicine Cardiovascular Disease
DX: I48.0 Paroxysmal atrial fibrillation (principal)
CPT/HCPCS: 36415; 85610

== ENCOUNTER → 2018-01-03 | Outpatient (CLI) | payer MEDICARE ==
[2018-01-03 09:25] LABS: HEMATOCRIT 36.8 % (39.0-51.0); HEMOGLOBIN 12.8 GM/DL (13.0-17.0); MEAN CELL VOLUME 88.4 FL (80.0-100.0); MEAN CORPUSCULAR HEMOGLOBIN 30.7 PG (27.0-34.0); MEAN CORPUSCULAR HGB CONC 34.7 % (32.0-36.0); MEAN PLATELET VOLUME 7.4 FL (7.0-11.0); PLATELET COUNT 282 TH/MM3 (150-450); RED BLOOD COUNT 4.16 MIL/MM3 (4.50-5.90); RED CELL DISTRIBUTION WIDTH 15.6 % (11.6-17.2); WHITE BLOOD COUNT 6.9 TH/MM3 (4.0-11.0)
[2018-01-03 09:33] LABS: INTERNATIONAL NORMALIZED RATIO 2.7 RATIO; PROTHROMBIN TIME - PATIENT 26.9 SEC (9.8-11.6)
[2018-01-03 09:54] LABS: ALBUMIN 3.7 GM/DL (3.4-5.0); AST (GOT) 20 U/L (15-37); BICARBONATE 24.4 MEQ/L (21.0-32.0); BLOOD UREA NITROGEN 42 MG/DL (7-18); CALCIUM 9.2 MG/DL (8.5-10.1); CHLORIDE 102 MEQ/L (98-107); CREATININE 1.79 MG/DL (0.60-1.30); GLOMERULAR FILTRATION RATE 37 ML/MIN (>89); GLUCOSE,FASTING 162 MG/DL (74-99); SODIUM (NA) 134 MEQ/L (136-145)
[2018-01-03 09:55] LABS: ALT (GPT) 24 U/L (12-78); CHOLESTEROL 186 MG/DL (120-200); TRIGLYCERIDES 411 MG/DL (42-150)
[2018-01-03 10:04] LABS: ALKALINE PHOSPHATASE 58 U/L (45-117); CHOLESTEROL/ HDL RATIO 7.94 RATIO; HDL CHOLESTEROL 23.4 MG/DL (40.0-60.0); TOTAL BILIRUBIN ADULT 0.5 MG/DL (0.2-1.0); TOTAL PROTEIN 7.9 GM/DL (6.4-8.2)
[2018-01-03 16:25] LABS: HEMOGLOBIN A1C 7.7 % (4.3-6.0)
== END ==
LOC: CLAB 08:59
PROVIDERS: ATTEND Internal Medicine Cardiovascular Disease
DX: I48.0 Paroxysmal atrial fibrillation (principal); E11.21 Type 2 diabetes mellitus with diabetic nephropathy; N18.3 Chronic kidney disease, stage 3 (moderate); I10 Essential (primary) hypertension; E78.4 Other hyperlipidemia; I25.10 Atherosclerotic heart disease of native coronary artery without angina pectoris; Z95.5 Presence of coronary angioplasty implant and graft
CPT/HCPCS: 36415; 80053; 80061; 83036; 84443; 85027; 85610

== ENCOUNTER → 2018-01-30 | Outpatient (CLI) | payer MEDICARE ==
[2018-01-30 11:46] LABS: INTERNATIONAL NORMALIZED RATIO 3.5 RATIO; PROTHROMBIN TIME - PATIENT 34.9 SEC (9.8-11.6)
== END ==
LOC: CLAB 10:56
PROVIDERS: ATTEND Internal Medicine Cardiovascular Disease
DX: I48.0 Paroxysmal atrial fibrillation (principal); Z95.5 Presence of coronary angioplasty implant and graft
CPT/HCPCS: 36415; 85610

== ENCOUNTER → 2018-02-07 | Outpatient (CLI) | payer MEDICARE ==
[2018-02-07 09:56] LABS: INTERNATIONAL NORMALIZED RATIO 3.3 RATIO; PROTHROMBIN TIME - PATIENT 33.6 SEC (9.8-11.6)
== END ==
LOC: CLAB 09:06
PROVIDERS: ATTEND Internal Medicine Cardiovascular Disease
DX: I48.0 Paroxysmal atrial fibrillation (principal); Z95.5 Presence of coronary angioplasty implant and graft
CPT/HCPCS: 36415; 85610

== ENCOUNTER → 2018-02-18 | Outpatient (CLI) | payer MEDICARE ==
[2018-02-18 09:06] LABS: INTERNATIONAL NORMALIZED RATIO 2.3 RATIO; PROTHROMBIN TIME - PATIENT 22.8 SEC (9.8-11.6)
== END ==
LOC: CLAB 08:29
PROVIDERS: ATTEND Internal Medicine Cardiovascular Disease
DX: I48.0 Paroxysmal atrial fibrillation (principal); Z95.5 Presence of coronary angioplasty implant and graft
CPT/HCPCS: 36415; 85610

== ENCOUNTER → 2018-02-27 | Outpatient (CLI) | payer MEDICARE ==
[2018-02-27 11:32] LABS: INTERNATIONAL NORMALIZED RATIO 2.2 RATIO; PROTHROMBIN TIME - PATIENT 22.7 SEC (9.8-11.6)
== END ==
LOC: CLAB 10:49
PROVIDERS: ATTEND Internal Medicine Cardiovascular Disease
DX: I48.0 Paroxysmal atrial fibrillation (principal); Z95.5 Presence of coronary angioplasty implant and graft
CPT/HCPCS: 36415; 85610

== ENCOUNTER → 2018-03-07 | Outpatient (CLI) | payer MEDICARE ==
[2018-03-07 09:25] LABS: INTERNATIONAL NORMALIZED RATIO 3.2 RATIO; PROTHROMBIN TIME - PATIENT 31.9 SEC (9.8-11.6)
== END ==
LOC: CLAB 08:52
PROVIDERS: ATTEND Internal Medicine Cardiovascular Disease
DX: I48.0 Paroxysmal atrial fibrillation (principal); Z95.5 Presence of coronary angioplasty implant and graft
CPT/HCPCS: 36415; 85610

== ENCOUNTER → 2018-03-14 | Outpatient (CLI) | payer MEDICARE ==
[2018-03-14 11:03] LABS: HEMOGLOBIN 12.7 GM/DL (13.0-17.0); MEAN CELL VOLUME 89.1 FL (80.0-100.0); MEAN CORPUSCULAR HEMOGLOBIN 30.5 PG (27.0-34.0); MEAN CORPUSCULAR HGB CONC 34.2 % (32.0-36.0); MEAN PLATELET VOLUME 7.6 FL (7.0-11.0); PLATELET COUNT 332 TH/MM3 (150-450); RED BLOOD COUNT 4.15 MIL/MM3 (4.50-5.90); RED CELL DISTRIBUTION WIDTH 15.2 % (11.6-17.2); WHITE BLOOD COUNT 6.8 TH/MM3 (4.0-11.0)
[2018-03-14 11:06] LABS: BILIRUBIN, URINE NEG (NEG); BLOOD, URINE SMALL (NEG); GLUCOSE,URINE NEG (NEG); HYALINE CAST, URINE 3 /lpf (RARE); KETONE, URINE NEG (NEG); MUCUS URINE FEW /lpf (OCC); NITRITE,URINE NEG (NEG); PH, URINE 5.5 (5.0-8.5); URINE COLOR LIGHT-YELLOW (YELLW/STRAW); URINE LEUKOCYTE ESTERASE NEG (NEG)
[2018-03-14 11:11] LABS: INTERNATIONAL NORMALIZED RATIO 3.5 RATIO; PROTHROMBIN TIME - PATIENT 34.8 SEC (9.8-11.6)
[2018-03-14 11:32] LABS: ALBUMIN 3.8 GM/DL (3.4-5.0); BICARBONATE 22.9 MEQ/L (21.0-32.0); CALCIUM 9.1 MG/DL (8.5-10.1); CREATININE 1.89 MG/DL (0.60-1.30); PHOSPHORUS 3.7 MG/DL (2.5-4.9)
== END ==
LOC: CLAB 10:29
PROVIDERS: ATTEND Internal Medicine Cardiovascular Disease
DX: I48.0 Paroxysmal atrial fibrillation (principal); N18.3 Chronic kidney disease, stage 3 (moderate); E55.9 Vitamin D deficiency, unspecified; M10.9 Gout, unspecified
CPT/HCPCS: 36415; 80069; 81001; 82306; 82570; 83970; 84156; 84550; 85027; 85610

== ENCOUNTER → 2018-03-21 | Outpatient (CLI) | payer MEDICARE ==
[2018-03-21 10:43] LABS: INTERNATIONAL NORMALIZED RATIO 2.7 RATIO
== END ==
LOC: CLAB 10:13
PROVIDERS: ATTEND Internal Medicine Cardiovascular Disease
DX: I48.0 Paroxysmal atrial fibrillation (principal); Z95.5 Presence of coronary angioplasty implant and graft
CPT/HCPCS: 36415; 85610

== ENCOUNTER → 2018-04-01 | Outpatient (CLI) | payer MEDICARE ==
[2018-04-01 12:08] LABS: INTERNATIONAL NORMALIZED RATIO 2.8 RATIO; PROTHROMBIN TIME - PATIENT 28.1 SEC (9.8-11.6)
== END ==
LOC: CLAB 11:38
PROVIDERS: ATTEND Internal Medicine Cardiovascular Disease
DX: I48.0 Paroxysmal atrial fibrillation (principal); Z95.5 Presence of coronary angioplasty implant and graft
CPT/HCPCS: 36415; 85610

== ENCOUNTER → 2018-04-16 | Outpatient (CLI) | payer MEDICARE ==
[2018-04-16 10:11] LABS: INTERNATIONAL NORMALIZED RATIO 2.2 RATIO
== END ==
LOC: CLAB 09:02
PROVIDERS: ATTEND Internal Medicine Cardiovascular Disease
DX: I48.0 Paroxysmal atrial fibrillation (principal); Z95.5 Presence of coronary angioplasty implant and graft
CPT/HCPCS: 36415; 85610

== ENCOUNTER → 2018-04-25 | Outpatient (CLI) | payer MEDICARE ==
[2018-04-25 11:33] LABS: INTERNATIONAL NORMALIZED RATIO 2.6 RATIO; PROTHROMBIN TIME - PATIENT 25.8 SEC (9.8-11.6)
== END ==
LOC: CLAB 11:06
PROVIDERS: ATTEND Internal Medicine Cardiovascular Disease
DX: I48.0 Paroxysmal atrial fibrillation (principal); Z95.5 Presence of coronary angioplasty implant and graft
CPT/HCPCS: 36415; 85610

== ENCOUNTER → 2018-05-02 | Outpatient (CLI) | payer MEDICARE ==
[2018-05-02 10:26] LABS: INTERNATIONAL NORMALIZED RATIO 2.3 RATIO; PROTHROMBIN TIME - PATIENT 23.6 SEC (9.8-11.6)
[2018-05-02 10:28] LABS: BASOPHIL # 0.1 TH/MM3 (0-0.2); EOSINOPHIL # 0.2 TH/MM3 (0-0.4); EOSINOPHIL % 3.3 % (0.0-4.0); HEMATOCRIT 35.8 % (39.0-51.0); HEMOGLOBIN 12.1 GM/DL (13.0-17.0); LYMPH % 23.7 % (9.0-44.0); LYMPHOCYTE # 1.5 TH/MM3 (1.0-4.8); MEAN CELL VOLUME 89.3 FL (80.0-100.0); MEAN CORPUSCULAR HEMOGLOBIN 30.2 PG (27.0-34.0); MEAN CORPUSCULAR HGB CONC 33.8 % (32.0-36.0); MEAN PLATELET VOLUME 7.8 FL (7.0-11.0); MONO % 10.8 % (0.0-8.0); MONOCYTE # 0.7 TH/MM3 (0-0.9); NEUT % 61.2 % (16.0-70.0); PLATELET COUNT 320 TH/MM3 (150-450); RED BLOOD COUNT 4.01 MIL/MM3 (4.50-5.90); RED CELL DISTRIBUTION WIDTH 14.9 % (11.6-17.2); WHITE BLOOD COUNT 6.5 TH/MM3 (4.0-11.0)
[2018-05-02 10:49] LABS: ALBUMIN 3.7 GM/DL (3.4-5.0); AST (GOT) 15 U/L (15-37); BICARBONATE 22.8 MEQ/L (21.0-32.0); BLOOD UREA NITROGEN 37 MG/DL (7-18); CALCIUM 8.8 MG/DL (8.5-10.1); CHLORIDE 105 MEQ/L (98-107); CHOLESTEROL 161 MG/DL (120-200); CREATININE 1.91 MG/DL (0.60-1.30); GLOMERULAR FILTRATION RATE 35 ML/MIN (>89); SODIUM (NA) 139 MEQ/L (136-145)
[2018-05-02 11:03] LABS: ALKALINE PHOSPHATASE 54 U/L (45-117); ALT (GPT) 23 U/L (12-78); CHOLESTEROL/ HDL RATIO 7.21 RATIO; GLUCOSE,FASTING 133 MG/DL (74-99); HDL CHOLESTEROL 22.3 MG/DL (40.0-60.0); LDL CHOLESTEROL 92 MG/DL (0-99); TOTAL BILIRUBIN ADULT 0.4 MG/DL (0.2-1.0); TOTAL PROTEIN 7.7 GM/DL (6.4-8.2); TRIGLYCERIDES 234 MG/DL (42-150)
[2018-05-02 16:56] LABS: HEMOGLOBIN A1C 6.6 % (4.3-6.0)
== END ==
LOC: CLAB 09:19
PROVIDERS: ATTEND Internal Medicine Endocrinology, Diabetes & Metabolism
DX: I48.0 Paroxysmal atrial fibrillation (principal); E78.2 Mixed hyperlipidemia; M10.9 Gout, unspecified; I12.9 Hypertensive chronic kidney disease with stage 1 through stage 4 chronic kidney disease, or unspecified chronic kidney disease; E11.21 Type 2 diabetes mellitus with diabetic nephropathy; E11.22 Type 2 diabetes mellitus with diabetic chronic kidney disease; N18.3 Chronic kidney disease, stage 3 (moderate); Z95.5 Presence of coronary angioplasty implant and graft
CPT/HCPCS: 36415; 80053; 80061; 83036; 84443; 84550; 85025; 85610